=== PATIENT | female | born 1970 | race Native Hawaiian/Other Pacific Islander ===

== ENCOUNTER 2017-02-01 09:42 | Day surgery (SDC) | payer SELFPAY ==
[2017-01-24 10:02] VITALS: BMI 29.7
[2017-02-01] MEDS ORDERED: Bupivacaine-Epi 0.25%-1:200,000 PF Inj ONE (10:18)
[2017-02-01] MEDS ORDERED: ceFAZolin IV 1 gm in Dextrose 0 GM/0 ML BAG IVPB ONE (10:18)
[2017-02-01] MEDS ORDERED: Lidocaine 1% Inj (20ml) ONE (10:19)
[2017-02-01] MEDS ORDERED: ceFAZolin IV 2 gm in Dextrose 1 GM/50 ML BAG IVPB ONE (10:19)
[2017-02-01 10:25] VITALS: O2SAT 100
[2017-02-01] MEDS ORDERED: Lactated Ringer's 1,000 ML IV ONE ×2 (11:13→12:10)
[2017-02-01] MEDS ORDERED: Midazolam 2 MG/2 ML VIAL ONE (11:16)
[2017-02-01] MEDS ORDERED: Propofol 10 mg/ml Inj (20 ML) ONE ×3 (11:16→12:12)
[2017-02-01] MEDS ORDERED: HYDROmorphone 0.5 mg/0.5 ml ISec IVP PRN (12:45)
[2017-02-01] MEDS ORDERED: Oxycodone/Acetaminophen 5/325 mg Tab PO PRN (12:50)
--- NOTE | 2017-02-01 12:54 | PCM.SURG1 ---
Surgeon's Initial Post Op Note - Surgeon's Notes Surgeon: Dr. Radha Ayon Service Tech: Dr. Hall PGY4, PGY1, Rafael OMS3 Type of Anesthesia: General IV Pre-Operative Diagnosis: Lipoma of Left Shoulder Operative Findings: see op note Post-Operative Diagnosis: same Operation Performed: excision of lipoma on left shoulder Specimen/Specimens Removed: Lipoma of left shoulder Estimated Blood Loss: EBL {In ML}: 5 Drains Used: No Drains Post-Op Condition: Good Date of Surgery/Procedure: 02/01/17 Time of Surgery/Procedure: 12:15
[2017-02-01 14:29] VITALS: BP 139/67; PULSE 60; RESP 18; TEMP 97.3
--- NOTE | 2017-02-05 06:02 | OP ---
PROCEDURE DATE: 02/01/2017 PREOPERATIVE DIAGNOSIS: Lipoma of the left shoulder approximately 6 x 5 cm in size. POSTOPERATIVE DIAGNOSIS: Lipoma of the left shoulder approximately 6 x 5 cm in size. PROCEDURE DONE: 1. Excision of the intramuscular lipoma of the left shoulder 6 x 5 cm in size. 2. Complex multilayer closure of the left shoulder wound 4 x 2 cm in size. SURGEON: The procedure was done by mo, Dr. Tavo Ayon. STORE LEADER: Jesus Hutton, PGY-3 resident TYPE OF ANESTHESIA: Local anesthesia plus sedation. ESTIMATED BLOOD LOSS: Around 20 mL. DRAINS: None. PATHOLOGY: Lipoma was sent to the pathology. COMPLICATIONS: None. INTRAOPERATIVE FINDINGS: The patient had approximately irregular shape 6 x 5 cm lipoma of the left shoulder extending to the underlying fascia and muscles and on intraoperative steps. This 46-year-old female who was diagnosed with lipoma of the left shoulder and the patient was consented for excision of the lipoma of the left shoulder, brought to the OR, and placed supine on the operating room table. After induction of the sedation, the left shoulder was prepped and draped and a local anesthesia was injected. After making approximately 4 cm incision, upper and lower flap was created and lateral and medial flap was also created and the lipoma was completely excised from underlying fascia and muscles and some part of the lipoma was extending into the muscle that was also excised and it was sent to the table for the pathology. After proper hemostasis, now large upper and lower flap was sutured to the underlying fascia and muscles in multiple stitches and subcutaneous was sutured to the underlying fascia, another layer of the subcu with 3-0 Vicryl, skin with 4-0 Monocryl, and dry sterile dressing was applied. The patient tolerated the procedure well. Count of the instrument was correct. There was no apparent complication. Tavo Ayon MD
== END 2017-02-01 14:32 | disposition home or self-care (01) ==
LOC: C.SDS 09:42
PROVIDERS: ATTEND Surgery Surgical Critical Care
DX: D17.22 Benign lipomatous neoplasm of skin and subcutaneous tissue of left arm (principal)
CPT/HCPCS: 11406; 12032; 88304; J0690; J1170; J2250; J2704; J3010; J7120